=== PATIENT | female | born 1975 | race Caucasian/White ===

== ENCOUNTER 2018-05-23 21:03 | Emergency (ER) | payer SELFPAY ==
[2018-05-23 21:30] VITALS: BP 150/96
--- NOTE | 2018-05-23 21:34 | ED Physician Documentation ---
General Adult - HISTORIAN Historian: patient - HPI Stated Complaint: cough/fever/weakness Chief Complaint: Fever Onset: days ago (1) Timing: still present Severity: mild Further Comments: yes (She states starting late last night this am - started running a fever, feeling fatigue, cough (non productive) - she has had OTC meds for fever and states she has relief. She is drinking well and eating normally . No sick contacts) Last known Well Code/Unknown Code: Unknown - ROS CONST: fever, weakness EYES/ENT: denies: sore throat, nasal drainage, nasal congestion CVS/RESP: denies: chest pain, shortness of breath, cough GI/: denies: problems urinating, vomiting, nausea, diarrhea MS/SKIN/LYMPH: none NEURO/PSYCH: headache. denies: fainting, dizziness, tingling, numbness, difficulty walking, difficulty with speech, anxiety, depression - PAST HX Past History: none Immunizations: UTD Allergies/Adverse Reactions: Allergies Allergy/AdvReac Type Severity Reaction Status Date / Time Penicillins Allergy Verified 05/23/18 21:30 Home Medications: Ambulatory Orders Medication Instructions Recorded NK 01/28/13 - SOCIAL HX Smoking History: non-smoker Alcohol Use: none Drug Use: none - FAMILY HX Family History: No - VITAL SIGNS Vital Signs: Vital Signs Temp Pulse Resp BP Pulse Ox 99.1 F 110 H 18 150/96 97 05/23/18 21:03 05/23/18 21:03 05/23/18 21:03 05/23/18 21:03 05/23/18 21:03 - REVIEWED ASSESSMENTS Nursing Assessment Reviewed: Yes Vitals Reviewed: Yes ED Results Lab/Radiology - Orders Orders: ED Orders Category Date Time Status INFLUENZA A&B Stat Lab 05/23/18 21:15 Uncollected General Adult Physical Exam - PHYSICAL EXAM GENERAL APPEARANCE: no distress EENT: eye inspection normal, ENT inspection normal, no signs of dehydration NECK: normal inspection RESPIRATORY: no resp distress, chest non-tender, breath sounds normal CVS: reg rate & rhythm, heart sounds normal, equal pulses ABDOMEN: soft, normal bowel sounds, no distension BACK: normal inspection SKIN: warm/dry, normal color EXTREMITIES: non-tender, normal range of motion, no evidence of injury, no edema NEURO: oriented X3, CN's nml as tested, motor nml, sensation nml, mood/affect nml, cognition normal Discharge Clincal Impression: Influenza A Referrals: Svitlana Vaughan CRANBERRY SORTER [Primary Care Provider] - 2 Days Comments: 1. Tamiflu 75 mg take 1 by mouth twice daily x 5 days 2. [employer] 3. Increase fluids 4. [place] foods 5. REST 6. Follow up with PCP for concerns in 2-4 days 7. Return to ER For any concerns Condition: Stable Disposition: 01 HOME, SELF-CARE Decision to Admit: NO Date of Decison to Admit: 05/23/18 Decision Time: 21:45
[2018-05-23 23:41] LABS: APPEARANCE,URINE CLEAR (CLEAR); COLOR,URINE YELLOW (YELLOW)
[2018-05-23 23:42] LABS: OCCULT BLOOD,URINE TRACE-LYSED (NEGATIVE); UROBILINOGEN URINE 0.2 Eu (0.2-1.0)
== END 2018-05-23 22:00 | disposition home or self-care (01) ==
LOC: ED 21:03
DX: J09.X2 Influenza due to identified novel influenza A virus with other respiratory manifestations (principal)
CPT/HCPCS: 80377; 81002; 99282; 99283; G0481